=== PATIENT | male | born 1985 | race Caucasian/White ===

== ENCOUNTER 2018-09-28 21:06 | Emergency (ER) | payer BC ==
[~2018-09-28] VITALS: Ht 188 cm; Wt 88.5 kg
[~2018-09-28 21:06] MED LIST: PERCOCET 5-3251 EACH ORAL; TREXIMET 85-501 EACH PO
[2018-09-28] MEDS ORDERED: NKM (21:20)
--- NOTE | 2018-09-28 21:20 | NUR ---
ED Nurse Note: Pt walked in ER with girlfriend and c/o headache on and off for 1 month. Pt is AO x 4 times, VSS, on room air no distress. FRANKLIND seen Pt at bedside.
[2018-09-28 22:04] VITALS: BP 128/77
[2018-09-28] MEDS ORDERED: PREDNISONE20 MG ORAL (22:10)
[2018-09-28] MEDS ORDERED: FIORICET1 EA ORAL (22:10)
[2018-09-28 22:25] VITALS: BP 128/77
--- NOTE | 2018-09-28 22:25 | NUR ---
ED Nurse Note: Pt cleared DC by KENNETH. Pt is AO x 4times, VSS, on room air no distress. ID bend removed. DC and Meds instructions given to Pt, Pt understood well. Belongings given to Pt. Pt walked out unit with steady gait with girlfriend.
--- NOTE | 2018-09-29 03:12 | Emergency Room Report ---
History of Present Illness General Chief Complaint: Headache Source: Patient Present Illness HPI 33-year-old male presents ED for evaluation of headache. States he's been having headaches on and off for the last month. States headache is now a 5 out of 10, throbbing behind both eyes. Denies photophobia or blurry vision. Denies nausea or vomiting. Denies neck stiffness. Denies sudden onset. Denies fevers or chills. States he's had headaches here and there last several years. Has not seen a PMD yet for his headaches. No other aggravating relieving factors. Denies any other associated symptoms Allergies: Coded Allergies: CIPROFLOXACIN (Verified Allergy, 05/05/13) CIPROFLOXACIN HCL (Verified Allergy, 05/05/13) Patient History Past Medical History: migraines Past Surgical History: none Pertinent Family History: none Social History: Denies: smoking, alcohol use, drug use Immunizations: UTD Reviewed Nursing Documentation: PMH: Agreed; PSxH: Agreed Nursing Documentation-PMH Past Medical History: No History, Except For Review of Systems All Other Systems: negative except mentioned in HPI Physical Exam Vital Signs Date Time Temp Pulse Resp B/P (MAP) Pulse Ox O2 Delivery O2 Flow Rate FiO2 09/28/18 21:14 98.1 88 16 118/73 96 Room Air Sp02 EP Interpretation: reviewed, normal General Appearance: no apparent distress, alert, GCS 15, non-toxic Head: normocephalic, atraumatic Eyes: bilateral eye normal inspection, bilateral eye PERRL, bilateral eye EOMI , bilateral eye visual acuity ENT: hearing grossly normal, normal pharynx, no angioedema, normal voice Neck: full range of motion, supple, no meningismus, supple/symm/no masses Respiratory: chest non-tender, lungs clear, normal breath sounds, speaking full sentences Cardiovascular #1: regular rate, rhythm, no edema Cardiovascular #2: 2+ carotid (R), 2+ carotid (L), 2+ radial (R), 2+ radial (L) , 2+ dorsalis pedis (R), 2+ dorsalis pedis (L) Gastrointestinal: normal bowel sounds, non tender, soft, non-distended, no guarding, no rebound Rectal: deferred Genitourinary: normal inspection, no CVA tenderness Musculoskeletal: back normal, gait/station normal, normal range of motion, non- tender Neurologic: alert, oriented x3, responsive, motor strength/tone normal, sensory intact, speech normal Psychiatric: judgement/insight normal, memory normal, mood/affect normal, no suicidal/homicidal ideation Reflexes: 3+ bicep (R), 3+ bicep (L), 3+ tricep (R), 3+ tricep (L), 3+ knee (R) , 3+ knee (L) Skin: normal color, no rash, warm/dry, well hydrated Lymphatic: no adenopathy Medical Decision Making Diagnostic Impression: Primary Impression: Headache Qualified Codes: R51 - Headache ER Course Hospital Course 33-year-old male presents to ED complaining of headaches. Differential diagnoses include: tension headache, migraine, dehydration, intracranial bleed Clinical course Patient placed on stretcher. After initial history, physical exam reveals male in no acute distress. Pupils equally reactive to light. No photophobia. Cranial nerves II through XII intact. No focal neurological deficits. No nuchal rigidity. 5 out of 5 motor strength in all extremities Vital stable. Patient appears comfortable in no distress. Patient was seen here in 2014 for similar headache. Head CT at that time which was unremarkable. I see no reason to repeat CT at this time. Discussed findings with the patient. Headache is chronic. Patient would benefit from outpatient workup. Including neurology referral. Patient states he does not have a PMD. We'll provide PMD and neurology referrals Patient states he's had benefit from prednisone in the past. We'll prescribe prednisone and Fioricet. Safe for discharge with close outpatient follow-up i. I feel this is a highly complex case requiring extensive working including EKG/Rhythm strip, Xray/CT/US, Blood/urine lab work, repeat exams while in ED, and administration of strong opiates/narcotics for pain control, admission to hospital or close patient follow up. Diagnosis - headache stable and discharged to home with Rx Fioricet, Prednisone. f/up with PMD. return to ED if symptoms recur/worsen. Last Vital Signs Date Time Temp Pulse Resp B/P (MAP) Pulse Ox O2 Delivery O2 Flow Rate FiO2 09/28/18 22:25 97.8 89 17 128/77 99 Room Air Status: improved Disposition: HOME, SELF-CARE Condition: Stable Scripts Acetamin/Butalbital/Caffeine* (FIORICET*) 1 Ea Tab 1 TAB ORAL Q6H, #15 TAB 0 Refills Prov: Tony Brooks MD 09/28/18 Prednisone* (PREDNISONE*) 20 Mg Tablet 40 MG ORAL DAILY, #10 TAB Prov: Tony Brooks MD 09/28/18 Referrals: Francisco Rowell MD,Anthony Wan MD, MD NOT CHOSEN IPA/,REFERRING (PCP) Patient Instructions: General Headache Without Cause Tony Brooks MD Sep 29, 2018 03:12
== END 2018-09-28 22:25 | disposition home or self-care (01) ==
LOC: EMR 21:40
DX: R51 Headache (principal); Z88.1 Allergy status to other antibiotic agents
CPT/HCPCS: 99283; J7512